=== PATIENT | male | born 1995 ===

== ENCOUNTER 2022-09-02 22:20 | Emergency (ER) | payer SELFPAY | END 2022-09-03 03:37 | disposition home or self-care (01) | LOC: DL.ED 22:20 | DX: S60.022A Contusion of left index finger without damage to nail, initial encounter (principal); Z72.0 Tobacco use | CPT/HCPCS: 73140-F1; 99283 ==

== ENCOUNTER 2023-06-25 02:37 | Emergency (ER) | payer SELFPAY ==
[2023-06-25] MEDS: Sodium Chloride 0.9% 10 ML Syringe FLUSH PRN (02:51)
[2023-06-25 02:58] LABS: BASOPHILS PERCENT AUTO 0.3 % (0.0-1.0); EOSINOPHILS PERCENT AUTO 1.5 % (1.0-3.0); HEMOGLOBIN 15.4 g/dL (14.0-18.0); LYMPHOCYTES PERCENT AUTO 53.9 % (20.5-50.1); MEAN CORPUSCULAR HEMOGLOBIN 29.1 pg (27.0-34.0); MEAN CORPUSCULAR VOLUME 83.2 fL (80-100); MONOCYTES PERCENT AUTO 8.1 % (2-8); NEUTROPHILS PERCENT AUTO 36.2 % (42.2-75.2); PLATELET COUNT,PLT 284 10^3/uL (150-450); RED BLOOD CELL COUNT 5.29 10^6/uL (4.6-6.2); WHITE BLOOD CELL COUNT,WBC 11.1 10^3/uL (5.0-10.0)
[2023-06-25 03:07] LABS: A/G RATIO 1.1; ALBUMIN 3.9 g/dL (3.4-5.0); ANION GAP 17.5 mEq/L (7-13); BILIRUBIN TOTAL 0.5 mg/dL (0.2-1.0); BUN/CREATININE RATIO 12.8 (No establ ref range); CREATININE 1.17 mg/dL (0.70-1.30); EST CRCL DRUG DOSING (CG) 101.01 mL/min; POTASSIUM,K 3.5 mmol/L (3.5-5.1); PROTEIN TOTAL,TP 7.3 g/dL (6.4-8.2)
[2023-06-25] MEDS: Iopamidol 612 MG/ML 100 ML Bottle IVPUSH ONE (03:28)
[2023-06-25] MEDS: Sodium Chloride 0.9% 1,000 ML IV ONE (03:31)
[2023-06-25 04:41] LABS: AMPHETAMINES,URINE NEGATIVE (NEGATIVE); BARBITURATES,URINE NEGATIVE (NEGATIVE); BENZODIAZEPINE,URINE NEGATIVE (NEGATIVE); MDMA (ECSTASY), URINE NEGATIVE (NEGATIVE); METHADONE,URINE NEGATIVE (NEGATIVE); METHAMPHETAMINES,URINE NEGATIVE (NEGATIVE); OPIATES,URINE NEGATIVE (NEGATIVE); OXYCODONE,URINE NEGATIVE (NEGATIVE); PHENCYCLIDINE,URINE NEGATIVE (NEGATIVE); TCA,URINE NEGATIVE (NEGATIVE)
== END 2023-06-25 04:47 ==
LOC: DL.ED 02:37
DX: S00.11XA Contusion of right eyelid and periocular area, initial encounter (principal); Y04.8XXA Assault by other bodily force, initial encounter
CPT/HCPCS: 36415; 70450; 71260; 72125; 74177; 80053; 80305-QW; 80307; 84484; 85025; 99283; 99285; J3490; J7030; Q9967

== ENCOUNTER 2024-01-16 11:18 | Emergency (ER) | payer SELFPAY ==
[2024-01-16 12:02] LABS: BASOPHILS PERCENT AUTO 0.1 % (0.0-1.0); HEMATOCRIT 44.6 % (40.0-54.0); HEMOGLOBIN 15.4 g/dL (14.0-18.0); LYMPHOCYTES PERCENT AUTO 6.3 % (20.5-50.1); MEAN CORPUSCULAR HEMOGLOBIN 28.9 pg (27.0-34.0); MEAN CORPUSCULAR HGB CONC 34.5 g/dL (33.0-35.0); MEAN CORPUSCULAR VOLUME 83.7 fL (80-100); MONOCYTES PERCENT AUTO 11.1 % (2-8); NEUTROPHILS PERCENT AUTO 82.5 % (42.2-75.2); PLATELET COUNT,PLT 195 10^3/uL (150-450); RED BLOOD CELL COUNT 5.33 10^6/uL (4.6-6.2); WHITE BLOOD CELL COUNT,WBC 15.5 10^3/uL (5.0-10.0)
[2024-01-16 12:17] LABS: ANION GAP 13.5 mEq/L (7-13); BUN/CREATININE RATIO 12.2 (No establ ref range); CALCIUM 8.8 mg/dL (8.5-10.1); CREATININE 1.56 mg/dL (0.70-1.30); EST CRCL DRUG DOSING (CG) 75.09 mL/min; MAGNESIUM 1.8 mg/dL (1.8-2.4); POTASSIUM,K 3.5 mmol/L (3.5-5.1)
[2024-01-16] MEDS: Sodium Chloride 0.9% 1,000 ML IV ONE (12:27)
[2024-01-16] MEDS: Ondansetron 4 MG/2 ML SDV IVPUSH ONE (12:39)
[2024-01-16] MEDS: Take Home: Ondansetron 4 MG Tab.DIS, 5 Tab Pack PO ONE (13:20)
== END 2024-01-16 13:21 | disposition home or self-care (01) ==
LOC: DL.ED 11:18
DX: U07.1 COVID-19 (principal); R11.10 Vomiting, unspecified; R19.7 Diarrhea, unspecified
CPT/HCPCS: 36415; 71045; 80053; 83690; 83735; 85025; 87804; 96361; 96374; 99284; 99284-25; J2405; J7030; Q0162; U0002

== ENCOUNTER 2024-02-29 16:27 | Emergency (ER) | payer BC | END 2024-02-29 17:00 | disposition home or self-care (01) | LOC: DL.ED 16:27 | DX: M25.422 Effusion, left elbow (principal); Z86.16 Personal history of COVID-19 | CPT/HCPCS: 99283 ==

== ENCOUNTER 2024-03-21 18:18 | Emergency (ER) | payer BC ==
[2024-03-21] MEDS: Ketorolac 30 MG/ML SDV IM ONE (20:02)
== END 2024-03-21 20:28 | disposition home or self-care (01) ==
LOC: DL.ED 18:18
DX: M25.422 Effusion, left elbow (principal); F17.210 Nicotine dependence, cigarettes, uncomplicated
CPT/HCPCS: 73080-LT; 87491; 87563; 87591; 96372; 99283; J1885